=== PATIENT | female | born 1975 | race Caucasian/White ===

== ENCOUNTER 2017-09-28 11:21 | Emergency (ER) | payer OTHER ==
[~2017-09-28] VITALS: Ht 162.5 cm; Wt 65.8 kg
[~2017-09-28 11:21] MED LIST: AMBIEN10 M1 PO; AMOXIL500 MG PO; ANAPROX DS550 MG PO; CHLORASEPTIC 1177 M1; CLEOCIN HCL150 MG PO; CLINDAMYCIN150 MG PO; DAYPRO600 M1 PO; DIFLUCAN150 MG PO; LITHIUM CARBON150 MG PO; LITHIUM CARBON450 MG PO; NEURONTIN100 MG PO; NEURONTIN600 MG PO; PHENERGAN W/DM120 ML PO; PRENATAL VITAMI1 TAB PO; ROBAXIN750 MG PO; TRAMADOL HCL50 MG PO; TYLENOL500 MG PO; VICODIN 5/500 505 MG PO; VICODIN 500 MG-1 TAB PO
[2017-09-28] MEDS ORDERED: LITHIUM CARB300 MG PO (11:35)
[2017-09-28] MEDS ORDERED: TRAZODONE100 MG PO (11:35)
[2017-09-28] MEDS ORDERED: CYMBALTA60 MG PO (11:36)
[2017-09-28] MEDS ORDERED: LISINOPRIL20 MG PO (11:37)
[2017-09-28] MEDS ORDERED: NAPROSYN500 MG PO (11:55)
[2017-09-28] MEDS ORDERED: KEFLEX500 M1 PO (11:55)
[2017-09-28] MEDS ORDERED: SEPTDS PO (11:55)
[2017-09-28] MEDS ORDERED: Bactroban Oint22 GM T (12:16)
[2017-09-28] MEDS ORDERED: LITHIUM CARBON300 M1 PO (12:16)
[2017-09-28] MEDS ORDERED: TAMIFLU 75MG CA75 MG PO (12:26)
== END 2017-09-28 12:13 | disposition home or self-care (01) ==
LOC: ED 11:21
DX: L03.211 Cellulitis of face (principal); R03.0 Elevated blood-pressure reading, without diagnosis of hypertension; F17.200 Nicotine dependence, unspecified, uncomplicated; Z79.899 Other long term (current) drug therapy; Z88.5 Allergy status to narcotic agent; Z88.8 Allergy status to other drugs, medicaments and biological substances; Z20.828 Contact with and (suspected) exposure to other viral communicable diseases

== ENCOUNTER 2021-08-09 12:36 | Inpatient (IN) | payer MEDICARE ==
[~2021-08-09] VITALS: Ht 163 cm; Wt 61.0 kg
[~2021-08-09 12:36] MED LIST changes: +Bactroban Oint22 GM T; +CYMBALTA60 MG PO; +KEFLEX500 M1 PO; +LISINOPRIL20 MG PO; +LITHIUM CARB300 MG PO; +LITHIUM CARBON300 M1 PO; +NAPROSYN500 MG PO; +SEPTDS PO; +TAMIFLU 75MG CA75 MG PO; +TRAZODONE100 MG PO
[2021-08-09 12:44] VITALS: BP 181/81
[2021-08-09 12:59] LABS: BASO # 0.1 10*3/uL (0.0-0.1); BASO % 0.5 % (0.0-1.0); EOS # 0.2 10*3/uL (0.0-0.4); HEMATOCRIT 43.3 % (37.0-47.0); LYMPH # 3.1 10*3/uL (1.3-4.4); LYMPH % 29.6 % (27.0-41.0); MEAN CELL VOLUME 86.3 fl (81.0-99.0); MEAN CORPUSCULAR HGB 30.1 pg (27.0-31.0); MEAN CORPUSCULAR HGB CONC 34.9 g/dl (33.0-37.0); MEAN PLATELET VOLUME 9.2 fl (9.6-12.3); MONO # 0.6 10*3/uL (0.1-1.0); MONO % 5.6 % (3.0-9.0); NEUT # 6.4 10*3/uL (2.3-7.9); NEUT % 62.1 % (47.0-73.0); PLATELET COUNT AUTOMATED 335 10*3/uL (130-400); RED BLOOD COUNT 5.02 10*6/uL (4.10-5.10); RED CELL DISTRI WIDTH 11.9 % (0-14.5); WHITE BLOOD COUNT 10.3 10*3/uL (4.8-10.8)
[2021-08-09 13:10] LABS: ACT PARTIAL THROMBO TIME 27.6 SECONDS (20.0-32.1)
[2021-08-09 13:17] LABS: ALBUMIN 3.6 gm/dl (3.1-4.5); ALKALINE PHOSPHATASE 114 U/L (45-117); BUN 9 mg/dl (7-24); CHLORIDE 98 mmol/L (98-107); CREATININE 0.86 mg/dL (0.55-1.02); POTASSIUM 3.8 mmol/L (3.5-5.1); SGOT/AST 112 IU/L (3-35); SGPT/ALT 175 U/L (12-78); SODIUM 132 mmol/L (136-145); TOTAL PROTEIN 8.1 gm/dL (6.4-8.2)
[2021-08-09 13:18] LABS: LIPASE 142 U/L (73-393)
[2021-08-09 13:22] LABS: BETA-HCG, QUANT < 1.0 mIU/mL (1-3)
[2021-08-09 15:00] VITALS: BP 178/80
[2021-08-09 15:16] LABS: BILIRUBIN Negative (Negative); BLOOD Negative (Negative); CLARITY Cloudy (Clear); COLOR Yellow (Yellow); GLUCOSE 1+ (Negative); KETONE Trace (Negative); LEUKO ESTERASE Negative (Negative); NITRITE Negative (Negative); UROBILINOGEN 0.2 E.U./dl (0.0-1.0)
[2021-08-09 15:28] LABS: PH 8.5 (4.5-8.0)
[2021-08-09 15:33] LABS: URINE AMPHETAMINES < 1000 (1000ng/ml); URINE BARBITURATES < 200 (200ng/ml); URINE BENZODIAZEPINES < 200 (200ng/ml); URINE METHADONE < 300 (300ng/ml); URINE OPIATES < 300 (300ng/ml)
[2021-08-09 15:34] LABS: URINE CANNABINOIDS (THC) > 50 (50ng/ml); URINE COCAINE > 300 (300ng/ml)
[2021-08-09 15:48] LABS: BACTERIA 3+; EPITHELIAL CELLS TNTC; RBC 0-2 rbc/hpf (0-2)
[2021-08-09 16:02] LABS: URINE PHENCYCLIDINE < 25 (25ng/ml)
[2021-08-09 17:10] VITALS: BP 174/78
[2021-08-09 19:19] VITALS: BP 174/78
[2021-08-10] VITALS (9 sets, daily range): BP systolic 129–177; BP diastolic 59–97
[2021-08-10 07:08] LABS: BASO % 0.3 % (0.0-1.0); EOS % 0.2 % (1.0-4.0); HEMATOCRIT 42.4 % (37.0-47.0); LYMPH # 3.1 10*3/uL (1.3-4.4); LYMPH % 24.8 % (27.0-41.0); MEAN CELL VOLUME 85.3 fl (81.0-99.0); MEAN CORPUSCULAR HGB CONC 35.1 g/dl (33.0-37.0); MEAN PLATELET VOLUME 9.3 fl (9.6-12.3); MONO # 1.2 10*3/uL (0.1-1.0); MONO % 9.5 % (3.0-9.0); NEUT % 64.9 % (47.0-73.0); PLATELET COUNT AUTOMATED 343 10*3/uL (130-400); RED BLOOD COUNT 4.97 10*6/uL (4.10-5.10); RED CELL DISTRI WIDTH 11.9 % (0-14.5); WHITE BLOOD COUNT 12.4 10*3/uL (4.8-10.8)
[2021-08-10 07:22] LABS: ALBUMIN 3.4 gm/dl (3.1-4.5); BUN 9 mg/dl (7-24); CHLORIDE 101 mmol/L (98-107); CREATININE 0.83 mg/dL (0.55-1.02); POTASSIUM 3.4 mmol/L (3.5-5.1); SGOT/AST 61 IU/L (3-35); SGPT/ALT 132 U/L (12-78); SODIUM 133 mmol/L (136-145); TOTAL PROTEIN 7.6 gm/dL (6.4-8.2)
[2021-08-10 07:30] LABS: ALKALINE PHOSPHATASE 98 U/L (45-117)
[2021-08-11] VITALS (7 sets, daily range): BP systolic 133–161; BP diastolic 75–88
[2021-08-11 06:33] LABS: BASO % 0.3 % (0.0-1.0); EOS % 0.3 % (1.0-4.0); LYMPH % 27.8 % (27.0-41.0); MEAN CELL VOLUME 84.4 fl (81.0-99.0); MEAN CORPUSCULAR HGB 30.2 pg (27.0-31.0); MEAN CORPUSCULAR HGB CONC 35.9 g/dl (33.0-37.0); MEAN PLATELET VOLUME 9.2 fl (9.6-12.3); MONO # 1.1 10*3/uL (0.1-1.0); MONO % 10.6 % (3.0-9.0); NEUT # 6.4 10*3/uL (2.3-7.9); NEUT % 60.6 % (47.0-73.0); PLATELET COUNT AUTOMATED 308 10*3/uL (130-400); RED BLOOD COUNT 4.86 10*6/uL (4.10-5.10); RED CELL DISTRI WIDTH 11.9 % (0-14.5); WHITE BLOOD COUNT 10.6 10*3/uL (4.8-10.8)
[2021-08-11 07:02] LABS: ALBUMIN 3.6 gm/dl (3.1-4.5); ALKALINE PHOSPHATASE 92 U/L (45-117); BUN 11 mg/dl (7-24); CHLORIDE 104 mmol/L (98-107); CREATININE 0.73 mg/dL (0.55-1.02); POTASSIUM 2.6 mmol/L (3.5-5.1); SGOT/AST 61 IU/L (3-35); SGPT/ALT 117 U/L (12-78); SODIUM 136 mmol/L (136-145); TOTAL PROTEIN 7.4 gm/dL (6.4-8.2)
[2021-08-11] MEDS ORDERED: BIKTARVY 50-201 EACH PO (15:30)
[2021-08-12 06:49] LABS: BASO # 0.1 10*3/uL (0.0-0.1); BASO % 0.8 % (0.0-1.0); EOS # 0.4 10*3/uL (0.0-0.4); EOS % 5.2 % (1.0-4.0); HEMATOCRIT 39.3 % (37.0-47.0); LYMPH # 2.1 10*3/uL (1.3-4.4); LYMPH % 29.5 % (27.0-41.0); MEAN CELL VOLUME 86.2 fl (81.0-99.0); MEAN CORPUSCULAR HGB 30.3 pg (27.0-31.0); MEAN CORPUSCULAR HGB CONC 35.1 g/dl (33.0-37.0); MEAN PLATELET VOLUME 9.1 fl (9.6-12.3); MONO # 1.1 10*3/uL (0.1-1.0); MONO % 15.2 % (3.0-9.0); NEUT # 3.5 10*3/uL (2.3-7.9); NEUT % 48.9 % (47.0-73.0); PLATELET COUNT AUTOMATED 271 10*3/uL (130-400); RED BLOOD COUNT 4.56 10*6/uL (4.10-5.10); RED CELL DISTRI WIDTH 12.2 % (0-14.5); WHITE BLOOD COUNT 7.2 10*3/uL (4.8-10.8)
[2021-08-12 07:15] LABS: BUN 9 mg/dl (7-24); CHLORIDE 109 mmol/L (98-107); CREATININE 0.73 mg/dL (0.55-1.02); POTASSIUM 3.5 mmol/L (3.5-5.1); SODIUM 139 mmol/L (136-145)
[2021-08-12] MEDS ORDERED: VIBRAMYCIN HYC100 MG PO (12:37)
== END 2021-08-12 19:49 | disposition home or self-care (01) | DRG 305 ==
LOC: ED 12:36 → EDHOLD 08-10 06:23 → 4E 08-11 20:18
PROVIDERS: Emergency Medicine; Internal Medicine; Registered Nurse; Student in an Organized Health Care Education/Training Program; ADMIT Internal Medicine; ATTEND Internal Medicine
PROC: 0HBHXZZ Excision of Right Upper Leg Skin, External Approach (ICD-10-PCS; principal; 2021-08-10)
DX: I16.0 Hypertensive urgency (principal); L02.415 Cutaneous abscess of right lower limb; R45.851 Suicidal ideations; N30.00 Acute cystitis without hematuria; E87.1 Hypo-osmolality and hyponatremia; B20 Human immunodeficiency virus [HIV] disease; F31.9 Bipolar disorder, unspecified; F11.10 Opioid abuse, uncomplicated; F43.23 Adjustment disorder with mixed anxiety and depressed mood; E87.6 Hypokalemia; B96.20 Unspecified Escherichia coli [E. coli] as the cause of diseases classified elsewhere; I15.0 Renovascular hypertension; R74.01 Elevation of levels of liver transaminase levels; F43.10 Post-traumatic stress disorder, unspecified; E78.5 Hyperlipidemia, unspecified; F41.9 Anxiety disorder, unspecified; F12.10 Cannabis abuse, uncomplicated; F14.10 Cocaine abuse, uncomplicated; E11.65 Type 2 diabetes mellitus with hyperglycemia; I25.10 Atherosclerotic heart disease of native coronary artery without angina pectoris; Z95.5 Presence of coronary angioplasty implant and graft; Z88.8 Allergy status to other drugs, medicaments and biological substances; Z90.49 Acquired absence of other specified parts of digestive tract; I25.2 Old myocardial infarction; Z79.899 Other long term (current) drug therapy

== ENCOUNTER 2021-10-09 21:41 | Emergency (ER) | payer MEDICARE ==
[~2021-10-09] VITALS: Ht 162.5 cm; Wt 72.6 kg
== END 2021-10-09 21:49 | disposition left against medical advice (07) ==
LOC: ED 21:41
DX: R56.9 Unspecified convulsions (principal); Z53.21 Procedure and treatment not carried out due to patient leaving prior to being seen by health care provider

== ENCOUNTER → 2021-10-09 | Outpatient (CLI) | payer MEDICARE ==
[~2021-10-09] MED LIST changes: +BIKTARVY 50-201 EACH PO; +VIBRAMYCIN HYC100 MG PO
== END | disposition home or self-care (01) ==
LOC: US 09:30
PROVIDERS: ATTEND Nurse Practitioner Women's Health
DX: N88.8 Other specified noninflammatory disorders of cervix uteri (principal); N64.52 Nipple discharge; N92.1 Excessive and frequent menstruation with irregular cycle; R10.2 Pelvic and perineal pain

== ENCOUNTER 2021-11-03 07:31 | Inpatient (IN) | payer MEDICARE ==
[2021-11-03] VITALS (7 sets, daily range): BP systolic 122–146; BP diastolic 66–90
[~2021-11-03] VITALS: Ht 162.5 cm; Wt 80.0 kg
[~2021-11-03 07:31] MED LIST changes: -TRAZODONE100 MG PO; +TRAZODONE50 MG PO
[2021-11-03 08:09] LABS: MEAN CELL VOLUME 90.2 fl (81.0-99.0); MEAN CORPUSCULAR HGB 30.3 pg (27.0-31.0); MEAN CORPUSCULAR HGB CONC 33.6 g/dl (33.0-37.0); MEAN PLATELET VOLUME 8.5 fl (9.6-12.3); PLATELET COUNT AUTOMATED 264 10*3/uL (130-400); RED BLOOD COUNT 3.99 10*6/uL (4.10-5.10); RED CELL DISTRI WIDTH 14.3 % (0-14.5); WHITE BLOOD COUNT 31.8 10*3/uL (4.8-10.8)
[2021-11-03 08:14] LABS: MANUAL DIFF REFLEX YES
[2021-11-03 08:24] LABS: ALKALINE PHOSPHATASE 163 U/L (45-117); BUN 7 mg/dl (7-24); CHLORIDE 89 mmol/L (98-107); CREATININE 0.87 mg/dL (0.55-1.02); POTASSIUM 3.2 mmol/L (3.5-5.1); SGOT/AST 26 IU/L (3-35); SGPT/ALT 42 U/L (12-78); SODIUM 123 mmol/L (136-145); TOTAL PROTEIN 6.6 gm/dL (6.4-8.2)
[2021-11-03 08:39] LABS: PLATELET SUFFICIENCY NORMAL (NORMAL); TOTAL CELLS COUNTED 100 #CELLS
[2021-11-03 08:40] LABS: POLYCHROMASIA SLIGHT
[2021-11-03] MEDS ORDERED: KLONOPIN1 M1 PO (18:03)
[2021-11-03] MEDS ORDERED: SEROQUEL400 M1 PO (18:04)
[2021-11-03] MEDS ORDERED: INTUNIV1 MG PO (18:06)
[2021-11-03] MEDS ORDERED: BUPRENORPHINE-1 EAC1 SL (18:08)
[2021-11-03] MEDS ORDERED: BASAG SOL SC (18:14)
[2021-11-03 20:30] LABS: BUN 8 mg/dl (7-24); CHLORIDE 102 mmol/L (98-107); CREATININE 0.52 mg/dL (0.55-1.02); POTASSIUM 3.2 mmol/L (3.5-5.1); SODIUM 131 mmol/L (136-145)
[2021-11-04] VITALS (82 sets, daily range): BP systolic 65–112; BP diastolic 38–76
[2021-11-04 00:29] LABS: BILIRUBIN Negative (Negative); BLOOD Trace-Lysed (Negative); CLARITY Clear (Clear); COLOR Yellow (Yellow); GLUCOSE Negative (Negative); KETONE Negative (Negative); LEUKO ESTERASE Negative (Negative); NITRITE Negative (Negative); SPECIFIC GRAVITY 1.015 (1.001-1.030)
[2021-11-04 00:32] LABS: BUN 9 mg/dl (7-24); CHLORIDE 101 mmol/L (98-107); CREATININE 0.75 mg/dL (0.55-1.02); POTASSIUM 3.3 mmol/L (3.5-5.1); SODIUM 132 mmol/L (136-145)
[2021-11-04 00:33] LABS: URINE AMPHETAMINES < 1000 (1000ng/ml); URINE BARBITURATES < 200 (200ng/ml); URINE BENZODIAZEPINES < 200 (200ng/ml); URINE CANNABINOIDS (THC) < 50 (50ng/ml); URINE COCAINE < 300 (300ng/ml); URINE METHADONE < 300 (300ng/ml); URINE OPIATES < 300 (300ng/ml)
[2021-11-04 00:39] LABS: URINE PHENCYCLIDINE < 25 (25ng/ml)
[2021-11-04 00:51] LABS: BACTERIA TRACE
[2021-11-04 02:35] LABS: ABG BASE EXCESS -0.8 mmol/L (-2.0-2.0); ARTERIAL BLOOD GAS PH 7.446 (7.35-7.45); ARTERIAL BLOOD GAS PO2 118.4 (80-90)
[2021-11-04 04:55] LABS: HEMATOCRIT 31.9 % (37.0-47.0); MEAN CELL VOLUME 89.6 fl (81.0-99.0); MEAN CORPUSCULAR HGB 30.3 pg (27.0-31.0); MEAN CORPUSCULAR HGB CONC 33.9 g/dl (33.0-37.0); MEAN PLATELET VOLUME 9.1 fl (9.6-12.3); PLATELET COUNT AUTOMATED 238 10*3/uL (130-400); RED BLOOD COUNT 3.56 10*6/uL (4.10-5.10); RED CELL DISTRI WIDTH 14.3 % (0-14.5); WHITE BLOOD COUNT 23.1 10*3/uL (4.8-10.8)
[2021-11-04 04:58] LABS: MANUAL DIFF REFLEX YES
[2021-11-04 05:09] LABS: ACT PARTIAL THROMBO TIME 39.1 SECONDS (20.0-32.1); INTERNATIONAL NORM RATIO 1.3 (2.0-3.5)
[2021-11-04 05:19] LABS: BUN 10 mg/dl (7-24); CHLORIDE 103 mmol/L (98-107); SGOT/AST 39 IU/L (3-35); SGPT/ALT 43 U/L (12-78); SODIUM 135 mmol/L (136-145); TOTAL PROTEIN 5.9 gm/dL (6.4-8.2); TRIGLYCERIDES 110 mg/dl (<150)
[2021-11-04 05:20] LABS: ALKALINE PHOSPHATASE 148 U/L (45-117)
[2021-11-04 05:25] LABS: THYROID STIM HORMONE (HS) 0.246 uIU/ml (0.358-4.75)
[2021-11-04 05:34] LABS: CHOLESTEROL < 50 mg/dL (<200); LDL CHOLESTEROL 20 mg/dL (9-159)
[2021-11-04 07:01] LABS: TOTAL CELLS COUNTED 100 #CELLS; TOXIC GRANULATION SLIGHT; VACUOLATION OF NEUTROPHILS SLIGHT
[2021-11-04 07:02] LABS: BURR CELLS FEW; POLYCHROMASIA SLIGHT
[2021-11-04 07:03] LABS: PLATELET SUFFICIENCY NORMAL (NORMAL); TARGET CELLS FEW
[2021-11-05] VITALS (89 sets, daily range): BP systolic 61–119; BP diastolic 38–73
[2021-11-05 05:31] LABS: ALKALINE PHOSPHATASE 173 U/L (45-117); BUN 14 mg/dl (7-24); CHLORIDE 102 mmol/L (98-107); CREATININE 0.93 mg/dL (0.55-1.02); SGOT/AST 34 IU/L (3-35); SGPT/ALT 23 U/L (12-78); SODIUM 135 mmol/L (136-145); TOTAL PROTEIN 4.9 gm/dL (6.4-8.2)
[2021-11-05 06:00] LABS: HEMATOCRIT 31.3 % (37.0-47.0); MEAN CELL VOLUME 92.1 fl (81.0-99.0); MEAN CORPUSCULAR HGB 30.6 pg (27.0-31.0); MEAN CORPUSCULAR HGB CONC 33.2 g/dl (33.0-37.0); MEAN PLATELET VOLUME 9.8 fl (9.6-12.3); PLATELET COUNT AUTOMATED 222 10*3/uL (130-400); RED CELL DISTRI WIDTH 14.9 % (0-14.5); WHITE BLOOD COUNT 13.3 10*3/uL (4.8-10.8)
[2021-11-05 06:44] LABS: MANUAL DIFF REFLEX YES
[2021-11-05 06:46] LABS: ATYPICAL LYMPHS 1 % (0-0); PLATELET SUFFICIENCY NORMAL (NORMAL); TOTAL CELLS COUNTED 100 #CELLS; TOXIC GRANULATION MODERATE
[2021-11-05 06:47] LABS: BURR CELLS FEW; POLYCHROMASIA SLIGHT; VACUOLATION OF NEUTROPHILS SLIGHT
[2021-11-06] VITALS (95 sets, daily range): BP systolic 86–1125; BP diastolic 47–83
[2021-11-06 04:40] LABS: HEMATOCRIT 31.1 % (37.0-47.0); MEAN CELL VOLUME 90.4 fl (81.0-99.0); MEAN CORPUSCULAR HGB 30.5 pg (27.0-31.0); MEAN CORPUSCULAR HGB CONC 33.8 g/dl (33.0-37.0); MEAN PLATELET VOLUME 9.7 fl (9.6-12.3); PLATELET COUNT AUTOMATED 231 10*3/uL (130-400); RED BLOOD COUNT 3.44 10*6/uL (4.10-5.10); RED CELL DISTRI WIDTH 15.5 % (0-14.5); WHITE BLOOD COUNT 17.6 10*3/uL (4.8-10.8)
[2021-11-06 04:41] LABS: MANUAL DIFF REFLEX YES
[2021-11-06 05:00] LABS: ALKALINE PHOSPHATASE 240 U/L (45-117); BUN 14 mg/dl (7-24); CHLORIDE 99 mmol/L (98-107); CREATININE 0.77 mg/dL (0.55-1.02); POTASSIUM 3.9 mmol/L (3.5-5.1); SGOT/AST 51 IU/L (3-35); SGPT/ALT 31 U/L (12-78); SODIUM 130 mmol/L (136-145); TOTAL PROTEIN 5.5 gm/dL (6.4-8.2)
[2021-11-06 05:45] LABS: BASOPHILS 1 % (0-1); TOTAL CELLS COUNTED 100 #CELLS
[2021-11-06 05:46] LABS: BURR CELLS FEW; PLATELET SUFFICIENCY NORMAL (NORMAL); POLYCHROMASIA SLIGHT; TARGET CELLS FEW
[2021-11-07] VITALS (67 sets, daily range): BP systolic 80–119; BP diastolic 45–69
[2021-11-07 04:57] LABS: HEMATOCRIT 27.1 % (37.0-47.0); MEAN CELL VOLUME 89.4 fl (81.0-99.0); MEAN CORPUSCULAR HGB 30.7 pg (27.0-31.0); MEAN CORPUSCULAR HGB CONC 34.3 g/dl (33.0-37.0); MEAN PLATELET VOLUME 9.9 fl (9.6-12.3); NUCLEATED RED BLOOD CELL 0.1 % (0.0-0.0); PLATELET COUNT AUTOMATED 240 10*3/uL (130-400); RED BLOOD COUNT 3.03 10*6/uL (4.10-5.10); RED CELL DISTRI WIDTH 15.3 % (0-14.5); WHITE BLOOD COUNT 14.4 10*3/uL (4.8-10.8)
[2021-11-07 04:59] LABS: MANUAL DIFF REFLEX YES
[2021-11-07 05:18] LABS: ALKALINE PHOSPHATASE 222 U/L (45-117); BUN 18 mg/dl (7-24); CHLORIDE 108 mmol/L (98-107); CREATININE 0.62 mg/dL (0.55-1.02); POTASSIUM 3.5 mmol/L (3.5-5.1); SGOT/AST 41 IU/L (3-35); SGPT/ALT 28 U/L (12-78); SODIUM 141 mmol/L (136-145); TOTAL PROTEIN 5.6 gm/dL (6.4-8.2)
[2021-11-07 06:51] LABS: ATYPICAL LYMPHS 1 % (0-0); BURR CELLS FEW; PLATELET SUFFICIENCY NORMAL (NORMAL); TARGET CELLS FEW; TOTAL CELLS COUNTED 100 #CELLS
[2021-11-07 06:58] LABS: ROULEAUX SLIGHT; TOXIC GRANULATION SLIGHT
[2021-11-07 08:03] LABS: ABG BASE EXCESS 3.7 mmol/L (-2.0-2.0); ARTERIAL BLOOD GAS PH 7.411 (7.35-7.45); ARTERIAL BLOOD GAS PO2 76.8 (80-90)
[2021-11-07 11:08] LABS: CD 4 POS LYMPH, % 38.9 % (30.8-58.5); CD 8 POS LYMPH, % 35.5 % (12.0-35.5)
[2021-11-07 13:07] LABS: HIV-1 RNA BY PCR 60 (.); LOG10 HIV-1 RNA 1.778 (.)
[2021-11-07 17:06] LABS: ABSOLUTE CD 4 HELPER 622 /uL (359-1519); ABSOLUTE CD8 SUPRESSOR 568 /uL (109-897); LYMPHOCYTES, ABSOLUTE 1.6 x10E3/uL (0.7-3.1); WBC 17.6 x10E3/uL (3.4-10.8)
[2021-11-08] VITALS (10 sets, daily range): BP systolic 102–151; BP diastolic 61–85
[2021-11-08 05:39] LABS: BUN 27 mg/dl (7-24); CHLORIDE 112 mmol/L (98-107); POTASSIUM 3.2 mmol/L (3.5-5.1); SODIUM 147 mmol/L (136-145)
[2021-11-08 05:42] LABS: ALKALINE PHOSPHATASE 215 U/L (45-117); CREATININE 0.55 mg/dL (0.55-1.02); SGOT/AST 31 IU/L (3-35); SGPT/ALT 24 U/L (12-78); TOTAL PROTEIN 6.3 gm/dL (6.4-8.2)
[2021-11-08 07:38] LABS: MEAN CELL VOLUME 90.1 fl (81.0-99.0); MEAN CORPUSCULAR HGB 30.3 pg (27.0-31.0); MEAN CORPUSCULAR HGB CONC 33.7 g/dl (33.0-37.0); MEAN PLATELET VOLUME 9.8 fl (9.6-12.3); RED BLOOD COUNT 3.33 10*6/uL (4.10-5.10); RED CELL DISTRI WIDTH 15.8 % (0-14.5); WHITE BLOOD COUNT 21.5 10*3/uL (4.8-10.8)
[2021-11-08 07:52] LABS: MANUAL DIFF REFLEX YES; PLATELET COUNT AUTOMATED 340 10*3/uL (130-400)
[2021-11-08 08:05] LABS: PLATELET SUFFICIENCY NORMAL (NORMAL); POLYCHROMASIA SLIGHT; ROULEAUX SLIGHT; TARGET CELLS FEW; TOTAL CELLS COUNTED 100 #CELLS; TOXIC GRANULATION MODERATE
[2021-11-08 08:09] LABS: ABG BASE EXCESS 6.2 mmol/L (-2.0-2.0); ARTERIAL BLOOD GAS PH 7.459 (7.35-7.45); ARTERIAL BLOOD GAS PO2 119.5 (80-90)
[2021-11-09] VITALS (12 sets, daily range): BP systolic 117–150; BP diastolic 66–89
[2021-11-09 05:57] LABS: BUN 29 mg/dl (7-24); CHLORIDE 115 mmol/L (98-107); POTASSIUM 4.1 mmol/L (3.5-5.1); SODIUM 149 mmol/L (136-145)
[2021-11-09 06:00] LABS: ALKALINE PHOSPHATASE 159 U/L (45-117); CREATININE 0.53 mg/dL (0.55-1.02); SGOT/AST 23 IU/L (3-35); SGPT/ALT 23 U/L (12-78)
[2021-11-09 06:24] LABS: BASO % 0.1 % (0.0-1.0); HEMATOCRIT 27.6 % (37.0-47.0); LYMPH # 2.4 10*3/uL (1.3-4.4); MEAN CORPUSCULAR HGB 31.7 pg (27.0-31.0); MEAN CORPUSCULAR HGB CONC 33.3 g/dl (33.0-37.0); MEAN PLATELET VOLUME 10.1 fl (9.6-12.3); MONO # 1.1 10*3/uL (0.1-1.0); MONO % 8.9 % (3.0-9.0); NEUT # 7.9 10*3/uL (2.3-7.9); NEUT % 66.9 % (47.0-73.0); PLATELET COUNT AUTOMATED 276 10*3/uL (130-400); RED CELL DISTRI WIDTH 15.9 % (0-14.5); WHITE BLOOD COUNT 11.8 10*3/uL (4.8-10.8)
[2021-11-09 06:43] LABS: MEAN CELL VOLUME 95.2 fl (81.0-99.0)
[2021-11-09 07:28] LABS: PLATELET SUFFICIENCY NORMAL (NORMAL); TOTAL CELLS COUNTED 100 #CELLS
[2021-11-09 08:55] LABS: ABG BASE EXCESS 8.3 mmol/L (-2.0-2.0); ARTERIAL BLOOD GAS PH 7.457 (7.35-7.45); ARTERIAL BLOOD GAS PO2 99.9 (80-90)
[2021-11-10] VITALS: BP 144/75
[2021-11-10 02:00] VITALS: BP 135/69
[2021-11-10 04:00] VITALS: BP 117/67
[2021-11-10 05:50] LABS: ALKALINE PHOSPHATASE 130 U/L (45-117); BUN 25 mg/dl (7-24); CHLORIDE 112 mmol/L (98-107); CREATININE 0.42 mg/dL (0.55-1.02); SGOT/AST 19 IU/L (3-35); SGPT/ALT 18 U/L (12-78); SODIUM 146 mmol/L (136-145); TOTAL PROTEIN 6.1 gm/dL (6.4-8.2)
[2021-11-10 05:52] LABS: POTASSIUM 3.7 mmol/L (3.5-5.1)
[2021-11-10 06:00] VITALS: BP 100/60
[2021-11-10 06:04] LABS: BASO % 0.1 % (0.0-1.0); EOS % 0.1 % (1.0-4.0); HEMATOCRIT 28.5 % (37.0-47.0); LYMPH % 18.8 % (27.0-41.0); MEAN CELL VOLUME 96.6 fl (81.0-99.0); MEAN CORPUSCULAR HGB 30.5 pg (27.0-31.0); MEAN CORPUSCULAR HGB CONC 31.6 g/dl (33.0-37.0); MEAN PLATELET VOLUME 10.2 fl (9.6-12.3); MONO # 0.7 10*3/uL (0.1-1.0); MONO % 6.5 % (3.0-9.0); NEUT # 7.7 10*3/uL (2.3-7.9); NEUT % 72.4 % (47.0-73.0); NUCLEATED RED BLOOD CELL 0.2 % (0.0-0.0); PLATELET COUNT AUTOMATED 301 10*3/uL (130-400); RED BLOOD COUNT 2.95 10*6/uL (4.10-5.10); RED CELL DISTRI WIDTH 15.6 % (0-14.5); WHITE BLOOD COUNT 10.7 10*3/uL (4.8-10.8)
[2021-11-10 07:31] LABS: ABG BASE EXCESS 6.8 mmol/L (-2.0-2.0); ARTERIAL BLOOD GAS PH 7.496 (7.35-7.45); ARTERIAL BLOOD GAS PO2 72.1 (80-90)
[2021-11-10 08:00] VITALS: BP 116/68
== END 2021-11-10 10:40 | disposition short-term general hospital (02) | DRG 870 ==
LOC: ED 07:31 → EDHOLD 14:07 → ICCU 14:07 → EDHOLD 14:43 → 4E 15:00 → ICCU 17:06
PROVIDERS: Hospitalist; Internal Medicine; Internal Medicine Critical Care Medicine; Internal Medicine Infectious Disease; Student in an Organized Health Care Education/Training Program; ADMIT Emergency Medicine; ATTEND Emergency Medicine
PROC: 02H633Z Insertion of Infusion Device into Right Atrium, Percutaneous Approach (ICD-10-PCS; 2021-11-03)
PROC: B548ZZA Ultrasonography of Superior Vena Cava, Guidance (ICD-10-PCS; 2021-11-03)
PROC: 5A1955Z Respiratory Ventilation, Greater than 96 Consecutive Hours (ICD-10-PCS; principal; 2021-11-04)
PROC: 0BH17EZ Insertion of Endotracheal Airway into Trachea, Via Natural or Artificial Opening (ICD-10-PCS; 2021-11-04)
PROC: B24BZZ4 Ultrasonography of Heart with Aorta, Transesophageal (ICD-10-PCS; 2021-11-09)
DX: A41.89 Other specified sepsis (principal); E43 Unspecified severe protein-calorie malnutrition; R65.21 Severe sepsis with septic shock; J18.9 Pneumonia, unspecified organism; J80 Acute respiratory distress syndrome; L03.114 Cellulitis of left upper limb; F31.32 Bipolar disorder, current episode depressed, moderate; E87.1 Hypo-osmolality and hyponatremia; I82.629 Acute embolism and thrombosis of deep veins of unspecified upper extremity; Z66 Do not resuscitate; I25.10 Atherosclerotic heart disease of native coronary artery without angina pectoris; F14.10 Cocaine abuse, uncomplicated; E11.628 Type 2 diabetes mellitus with other skin complications; F12.10 Cannabis abuse, uncomplicated; F41.9 Anxiety disorder, unspecified; E78.2 Mixed hyperlipidemia; F11.10 Opioid abuse, uncomplicated; F17.210 Nicotine dependence, cigarettes, uncomplicated; I50.9 Heart failure, unspecified; R65.20 Severe sepsis without septic shock; Z20.822 Contact with and (suspected) exposure to COVID-19; Z68.29 Body mass index [BMI] 29.0-29.9, adult; Z88.8 Allergy status to other drugs, medicaments and biological substances; Z90.49 Acquired absence of other specified parts of digestive tract; Z95.5 Presence of coronary angioplasty implant and graft

== ENCOUNTER 2022-01-05 14:11 | Inpatient (IN) | payer MEDICARE ==
[~2022-01-05] VITALS: Ht 162.6 cm; Wt 64.9 kg
[~2022-01-05 14:11] MED LIST changes: +BASAG SOL SC; +BUPRENORPHINE-1 EAC1 SL; +INTUNIV1 MG PO; +KLONOPIN1 M1 PO; +SEROQUEL400 M1 PO
[2022-01-05 14:12] VITALS: BP 128/86
[2022-01-05] MEDS ORDERED: GLIPIZIDE10 M2 PO (14:34)
[2022-01-05] MEDS ORDERED: ELIQUIS5 M1 PO (14:34)
[2022-01-05] MEDS ORDERED: METFORMIN HYD1000 MG PO (14:34)
[2022-01-05] MEDS ORDERED: FAMOTIDINE20 M1 PO (14:35)
[2022-01-05] MEDS ORDERED: ROPINIROLE HYDRO2 M2 PO (14:36)
[2022-01-05] MEDS ORDERED: GABAPENTIN400 MG PO (14:36)
[2022-01-05 14:52] LABS: BASO % 0.3 % (0.0-1.0); EOS # 0.2 10*3/uL (0.0-0.4); EOS % 2.4 % (1.0-4.0); HEMATOCRIT 33.8 % (37.0-47.0); LYMPH # 1.6 10*3/uL (1.3-4.4); LYMPH % 20.7 % (27.0-41.0); MEAN CELL VOLUME 88.5 fl (81.0-99.0); MEAN CORPUSCULAR HGB CONC 31.7 g/dl (33.0-37.0); MEAN PLATELET VOLUME 8.3 fl (9.6-12.3); MONO # 0.9 10*3/uL (0.1-1.0); MONO % 11.4 % (3.0-9.0); NEUT # 4.9 10*3/uL (2.3-7.9); NEUT % 64.8 % (47.0-73.0); PLATELET COUNT AUTOMATED 365 10*3/uL (130-400); RED BLOOD COUNT 3.82 10*6/uL (4.10-5.10); RED CELL DISTRI WIDTH 13.1 % (0-14.5); WHITE BLOOD COUNT 7.5 10*3/uL (4.8-10.8)
[2022-01-05 15:08] VITALS: BP 122/78
[2022-01-05 15:09] LABS: ALKALINE PHOSPHATASE 304 U/L (45-117); BUN 9 mg/dl (7-24); CHLORIDE 104 mmol/L (98-107); CREATININE 0.76 mg/dL (0.55-1.02); LIPASE 82 U/L (73-393); POTASSIUM 2.9 mmol/L (3.5-5.1); SGOT/AST 89 IU/L (3-35); SGPT/ALT 46 U/L (12-78); SODIUM 138 mmol/L (136-145); TOTAL PROTEIN 7.7 gm/dL (6.4-8.2)
[2022-01-05 15:13] LABS: ACT PARTIAL THROMBO TIME 30.3 SECONDS (20.0-32.1); INTERNATIONAL NORM RATIO 1.1 (2.0-3.5)
[2022-01-05 19:19] VITALS: BP 119/81
[2022-01-05 20:58] VITALS: BP 100/60
[2022-01-06 08:23] VITALS: BP 136/89
[2022-01-07] VITALS (7 sets, daily range): BP systolic 110–168; BP diastolic 79–97
[2022-01-07 06:56] LABS: BILIRUBIN Negative (Negative); BLOOD Trace-Lysed (Negative); CLARITY Clear (Clear); COLOR Yellow (Yellow); GLUCOSE Negative (Negative); KETONE 4+ (Negative); LEUKO ESTERASE Negative (Negative); NITRITE Negative (Negative); SPECIFIC GRAVITY 1.025 (1.001-1.030)
[2022-01-07 07:06] LABS: URINE AMPHETAMINES > 1000 (1000ng/ml); URINE BARBITURATES < 200 (200ng/ml); URINE BENZODIAZEPINES > 200 (200ng/ml); URINE CANNABINOIDS (THC) < 50 (50ng/ml); URINE COCAINE < 300 (300ng/ml); URINE METHADONE < 300 (300ng/ml); URINE OPIATES < 300 (300ng/ml)
[2022-01-07 07:07] LABS: BACTERIA 1+; CALCIUM OXALATE CRYSTALS 1+; HYALINE CAST 16-20; MUCOUS 1+
[2022-01-07 07:10] LABS: URINE PHENCYCLIDINE < 25 (25ng/ml)
[2022-01-07 11:19] LABS: BASO % 0.4 % (0.0-1.0); EOS % 0.2 % (1.0-4.0); HEMATOCRIT 37.6 % (37.0-47.0); LYMPH # 2.3 10*3/uL (1.3-4.4); LYMPH % 21.6 % (27.0-41.0); MEAN CELL VOLUME 87.6 fl (81.0-99.0); MEAN CORPUSCULAR HGB CONC 31.9 g/dl (33.0-37.0); MEAN PLATELET VOLUME 8.4 fl (9.6-12.3); MONO % 9.7 % (3.0-9.0); NEUT # 7.1 10*3/uL (2.3-7.9); NEUT % 67.3 % (47.0-73.0); PLATELET COUNT AUTOMATED 375 10*3/uL (130-400); RED BLOOD COUNT 4.29 10*6/uL (4.10-5.10); RED CELL DISTRI WIDTH 13.3 % (0-14.5); WHITE BLOOD COUNT 10.6 10*3/uL (4.8-10.8)
[2022-01-07 11:35] LABS: ALKALINE PHOSPHATASE 227 U/L (45-117); BUN 11 mg/dl (7-24); CHLORIDE 103 mmol/L (98-107); CREATININE 0.68 mg/dL (0.55-1.02); POTASSIUM 2.7 mmol/L (3.5-5.1); SGOT/AST 97 IU/L (3-35); SGPT/ALT 60 U/L (12-78); SODIUM 134 mmol/L (136-145)
[2022-01-08] VITALS: BP 140/77
[2022-01-08 05:00] VITALS: BP 138/78
[2022-01-08 05:58] LABS: BUN 6 mg/dl (7-24); CHLORIDE 102 mmol/L (98-107); CHOLESTEROL 114 mg/dL (<200); CREATININE 0.48 mg/dL (0.55-1.02); POTASSIUM 2.5 mmol/L (3.5-5.1); SGOT/AST 51 IU/L (3-35); SGPT/ALT 42 U/L (12-78); SODIUM 133 mmol/L (136-145); TRIGLYCERIDES 206 mg/dl (<150)
[2022-01-08 06:07] LABS: ALKALINE PHOSPHATASE 172 U/L (45-117); FREE T4 1.13 ng/dl (0.76-1.46); LDL CHOLESTEROL 44 mg/dL (9-159); THYROID STIM HORMONE (HS) 0.367 uIU/ml (0.358-4.75)
[2022-01-08 06:37] LABS: BASO % 0.4 % (0.0-1.0); EOS % 0.4 % (1.0-4.0); HEMATOCRIT 35.1 % (37.0-47.0); LYMPH # 2.4 10*3/uL (1.3-4.4); LYMPH % 31.9 % (27.0-41.0); MEAN CORPUSCULAR HGB 27.8 pg (27.0-31.0); MEAN CORPUSCULAR HGB CONC 32.8 g/dl (33.0-37.0); MEAN PLATELET VOLUME 9.2 fl (9.6-12.3); MONO # 0.7 10*3/uL (0.1-1.0); MONO % 9.5 % (3.0-9.0); NEUT # 4.3 10*3/uL (2.3-7.9); NEUT % 57.3 % (47.0-73.0); PLATELET COUNT AUTOMATED 361 10*3/uL (130-400); RED BLOOD COUNT 4.13 10*6/uL (4.10-5.10); RED CELL DISTRI WIDTH 13.1 % (0-14.5); WHITE BLOOD COUNT 7.6 10*3/uL (4.8-10.8)
[2022-01-08 06:39] LABS: ACT PARTIAL THROMBO TIME 31.5 SECONDS (20.0-32.1)
[2022-01-08 06:53] LABS: VITAMIN D, 25-HYDROXY 40.1 ng/mL (30-100)
[2022-01-08 08:00] VITALS: BP 144/85
[2022-01-08 12:00] VITALS: BP 136/106
== END 2022-01-08 16:37 | disposition left against medical advice (07) | DRG 871 ==
LOC: ED 14:11 → EDHOLD 01-07 10:15 → 4E 01-07 10:15
PROVIDERS: Family Medicine; ADMIT Emergency Medicine; ATTEND Emergency Medicine
DX: A41.9 Sepsis, unspecified organism (principal); J69.0 Pneumonitis due to inhalation of food and vomit; E87.1 Hypo-osmolality and hyponatremia; E44.1 Mild protein-calorie malnutrition; F15.10 Other stimulant abuse, uncomplicated; F41.9 Anxiety disorder, unspecified; I25.10 Atherosclerotic heart disease of native coronary artery without angina pectoris; F32.9 Major depressive disorder, single episode, unspecified; E78.5 Hyperlipidemia, unspecified; E83.39 Other disorders of phosphorus metabolism; E87.8 Other disorders of electrolyte and fluid balance, not elsewhere classified; E11.65 Type 2 diabetes mellitus with hyperglycemia; R74.01 Elevation of levels of liver transaminase levels; F32.A Depression, unspecified; E87.6 Hypokalemia; Z53.29 Procedure and treatment not carried out because of patient's decision for other reasons; D64.9 Anemia, unspecified; Z20.822 Contact with and (suspected) exposure to COVID-19; S90.811A Abrasion, right foot, initial encounter; X58.XXXA Exposure to other specified factors, initial encounter; Y93.89 Activity, other specified; Y92.89 Other specified places as the place of occurrence of the external cause; Y99.8 Other external cause status; Z88.8 Allergy status to other drugs, medicaments and biological substances; Z90.49 Acquired absence of other specified parts of digestive tract; I25.2 Old myocardial infarction; Z86.718 Personal history of other venous thrombosis and embolism; Z68.24 Body mass index [BMI] 24.0-24.9, adult

== ENCOUNTER → 2022-02-06 | Outpatient (CLI) | payer MEDICARE ==
[~2022-02-06] MED LIST changes: +ELIQUIS5 M1 PO; +FAMOTIDINE20 M1 PO; +GABAPENTIN400 MG PO; +GLIPIZIDE10 M2 PO; +METFORMIN HYD1000 MG PO; +ROPINIROLE HYDRO2 M2 PO
== END ==
LOC: CT 10:10
PROVIDERS: ATTEND Nurse Practitioner Family
DX: J18.9 Pneumonia, unspecified organism (principal); R06.02 Shortness of breath; R05.9 Cough, unspecified; R59.0 Localized enlarged lymph nodes

== ENCOUNTER 2022-06-26 21:00 | Emergency (ER) | payer MEDICARE ==
[~2022-06-26] VITALS: Ht 167.6 cm; Wt 86.2 kg
[2022-06-26 23:05] LABS: HEMATOCRIT 45.3 % (37.0-47.0); MEAN CELL VOLUME 109.7 fl (81.0-99.0); MEAN CORPUSCULAR HGB 31.5 pg (27.0-31.0); MEAN CORPUSCULAR HGB CONC 28.7 g/dl (33.0-37.0); MEAN PLATELET VOLUME 9.6 fl (9.6-12.3); NUCLEATED RED BLOOD CELL 0.4 10*3/uL (0.0-0.0); PLATELET COUNT AUTOMATED 203 10*3/uL (130-400); RED BLOOD COUNT 4.13 10*6/uL (4.10-5.10); RED CELL DISTRI WIDTH 13.2 % (0-14.5); WHITE BLOOD COUNT 36.7 10*3/uL (4.8-10.8)
[2022-06-26 23:10] LABS: MANUAL DIFF REFLEX YES
[2022-06-26 23:21] LABS: CHLORIDE 103 mmol/L (98-107); SODIUM 137 mmol/L (136-145)
[2022-06-26 23:23] LABS: THYROID STIM HORMONE (HS) 9.688 uIU/ml (0.550-4.780)
[2022-06-26 23:28] LABS: ATYPICAL LYMPHS 1 % (0-0); PLATELET SUFFICIENCY NORMAL (NORMAL); TOTAL CELLS COUNTED 100 #CELLS
[2022-06-26 23:38] LABS: ALKALINE PHOSPHATASE 234 U/L (46-116); BUN 14 mg/dl (9-23); CREATININE 1.63 mg/dL (0.55-1.02)
[2022-06-26 23:40] LABS: TOTAL PROTEIN 6.1 gm/dL (6.0-8.0)
[2022-06-26 23:45] LABS: SGPT/ALT > 3300 U/L (10-49)
[2022-06-26 23:47] LABS: POTASSIUM 7.1 mmol/L (3.4-5.1)
== END 2022-06-27 01:12 ==
LOC: ED 21:00
PROVIDERS: Emergency Medicine
DX: I46.9 Cardiac arrest, cause unspecified (principal); F17.200 Nicotine dependence, unspecified, uncomplicated; Z88.8 Allergy status to other drugs, medicaments and biological substances; Z79.899 Other long term (current) drug therapy; Z90.49 Acquired absence of other specified parts of digestive tract; Z98.890 Other specified postprocedural states